=== PATIENT | female | born 1960 | race Two or more races ===

== ENCOUNTER 2017-01-07 10:28 | Emergency (ER) | payer OTHER ==
[~2017-01-07] VITALS: Ht 165.1 cm; Wt 64.9 kg
[2017-01-07 13:51] VITALS: BP 123/79
== END 2017-01-07 13:51 | disposition home or self-care (01) ==
LOC: ED 10:28
DX: G89.29 Other chronic pain (principal); M54.2 Cervicalgia; M54.9 Dorsalgia, unspecified
CPT/HCPCS: J1885